=== PATIENT | male | born 1980 | race Two or more races ===

== ENCOUNTER 2024-11-15 08:00 | Day surgery (SDC) | payer MEDICAID, SELFPAY ==
[2024-11-14 15:18] VITALS: BMI 25.8
[2024-11-15] VITALS (11 sets, daily range): BP systolic 106–156; BP diastolic 66–106; PULSE 54–80; RESP 12–20; TEMP 36.2; O2SAT 94–100; BMI 26.1
[2024-11-15] MEDS: RINGERS LACTATED 1000 ML 1,000 ML 20 ML IV (09:43)
[2024-11-15] MEDS: DiphenhydrAMINE INJ 50 MG/ML VIAL 25 MG IV (09:44)
[2024-11-15] MEDS: fentaNYL CIT INJ 50 mCg/ML AMP 2ML (ASD USE ONLY) IV (09:45)
[2024-11-15] MEDS: MEPERIDINE INJ 25 MG/ML VIAL (ASD USE ONLY) IV (09:51)
[2024-11-15] MEDS: MIDAZOLAM INJ 1 MG/ML VIAL 2 ML (ASD USE ONLY) 2 MG IV (09:52)
[2024-11-15] MEDS: ONDANSETRON INJ 2 MG/ML INJ 2 ML 4 MG IV (10:06)
== END 2024-11-15 10:57 | disposition home or self-care (01) ==
PROVIDERS: PCP Family Medicine; Referring Provider Surgery; Visit Provider Surgery
PROC: 0DBE8ZX Excision of Large Intestine, Via Natural or Artificial Opening Endoscopic, Diagnostic (ICD-10-PCS; CPT 45380; principal; 2024-11-15 10:45)
DX: Z12.11 Encounter for screening for malignant neoplasm of colon (principal)
CPT/HCPCS: 45378; J1200; J2175; J2250; J2405; J3010; J7120

== ENCOUNTER 2025-03-16 20:09 | Emergency (ER) | payer MEDICAID, SELFPAY ==
[2025-03-16 20:10] VITALS: BMI 24.6
[2025-03-16 20:31] VITALS: BP 137/78; PULSE 69; RESP 18; TEMP 36.9; O2SAT 96; BMI 26.6
--- NOTE | 2025-03-16 20:50 | XR_ITS ---
Examination: Toes, left foot first digit Technique: Toes AP oblique lateral 3 views Date and time of exam: March 16, 20252051 hours INDICATIONS: Injury to first digit today, pain FINDINGS: Acute fractures mid and distal aspect distal phalanx first digit without significant displacement IMPRESSION: Acute fractures distal phalanx first digit
[2025-03-16] MEDS: ACETAMINOPHEN 500 MG TABLET 1000 MG PO (21:13)
--- NOTE | 2025-03-16 21:56 | EDNOTE_ITS ---
Lower Extremity Injury RME/HPI General Chief Complaint: Ankle/Foot Injury Stated Complaint: L GREAT TOE INJURY Time Seen by Provider: 03/16/25 20:21 Source: patient Arrival date/time: 03/16/25 20:09 RME / HPI RME / HPI Narrative: 44-year-old male presents to the ED with a complaint of left great toe pain secondary to an injury he sustained while purchasing wood at [employer]. He states he was getting a 4 x 8's sheet of plywood off the shelf when it fell, landing on his left great toe. He took an ibuprofen at home prior to his arrival. He has swelling and ecchymosis proximal to the cuticle tenderness Related Data Previous Rx's ?Medication ?Instructions ?Recorded inhalational spacing device #1 ea 04/11/21 (AeroTrach Plus spacer) ibuprofen 600 mg tablet 600 mg PO Q8H PRN pain #30 t abs 03/16/25 Allergies Allergy/AdvReac Type Severity Reaction Status Date / Time No Known Allergies Allergy Verified 03/16/25 20:14 Review of Systems Review of Systems Systems Reviewed: All systems reviewed, normal except as documented Past Medical History Past Medical History NEUROLOGIC: Negative Neurological Disorders or Seizures CARDIAC: Negative Cardiac Disorders or Congestive Heart Failure RESPIRATORY: Positive Asthma (NO INHALER NEEDE FOR 3 YEARS) and Pneumonia (IN 2019 DUE TO COVID); Negative Chronic Obstructive Pulmonary Disease (COPD) GASTROINTESTINAL: Positive Gastrointestinal Disorders (EPISODES OF DIARRHEA AND CONSTIPATION) and Gastroesophageal Reflux Disease GENITOURINARY: Negative Genitourinary Disorders or Renal Disease MUSCULOSKELETAL: Negative Musculoskeletal Disorders ENDOCRINE: Negative Endocrine Disorders, Diabetes Mellitus Type 1 or Diabetes Mellitus Type 2 HEMATOLOGIC: Negative Blood Disorders OTHER HISTORY: Negative Autoimmune Disease, Blood Transfusions, Blood Transfusion Reaction, Anesthesia Reactions or Cancer Family History FAMILY HISTORY: Negative Family Cardiac Disorders Social History SMOKING STATUS: Never smoker SUBSTANCE USE: does not use ED Exam Narrative Physical exam: A&O, afebrile and non-toxic appearing 44-year-old male, no acute distress. Left great toe with swelling and ecchymosis noted proximal to the cuticle. He has painful weightbearing as well as tenderness to the first metatarsal phalangeal joint and distally. No open wound is noted. CMS intact to all 5 toes. No tenderness to palpation of the metatarsals or 2nd, 3rd, 4th or 5th MTP joints. Lungs are clear, RRR, Abdomen is non-distended. Moves all other extremities well. Course Course Course Narrative: Patient was given Tylenol 1 g p.o. X-rays of the left toes reveals Acute fractures distal phalanx first digit, per radiologist reading. Patient was placed in a postop shoe and fitted with a pair of crutches. He will be discharged home with a prescription of ibuprofen 600 mg to be taken 3 times daily as needed. He will be given light duty until he has seen by his primary care physician. Quality Measures none Orders Category Date Time Status XR toe LT min 2V Stat Exams 03/16/25 20:50 Completed Acetaminophen Tab [Tylenol ES Tab] Med 03/16/25 20:50 Discontinued 1,000 mg PO X1 ONE Vital Signs Vital signs: Vital Signs Temperature 98.4 F 03/16/25 20:31 Pulse Rate 69 03/16/25 20:31 Respiratory Rate 18 03/16/25 20:31 Blood Pressure 137/78 H 03/16/25 20:31 Pulse Oximetry (%) 96 03/16/25 20:31 Oxygen Delivery Method Room Air 03/16/25 20:31 Extremity Injury, Lower MDM Narrative MDM Narrative:: Symptoms, exam and diagnostic studies are consistent with: Left great toe distal phalanx fractures with nondisplacement. Patient was discharged home in stable and improved condition, with a postop shoe and crutches. He was prescribed ibuprofen 600 mg p.o. to be taken 3 times daily as needed. Patient/family advised to follow-up with their PCP in 24-48 hours. Encouraged to return to the ED for any new or worsening symptoms. Patient data External records reviewed:: None Clinical information provided by:: patient Social determinants that could affect healthcare access:: none Patient has the following chronic illnesses:: N/A How is presenting disease/condition affected by chronic disease/condition?: no chronic disease Evaluation data The following diagnostics were reviewed and interpreted by me:: radiology exam(s) Lab and/or radiology exams considered but not ordered:: N/A Interpretation Summary: As noted above Medications / Prescriptions Medications or Prescriptions considered but not ordered:: N/A Medication administrations:: Medication Administration History Discontinued Medications Acetaminophen (Acetaminophen 500 Mg Tablet) 1,000 mg PO X1 ONE Stop: 03/16/25 20:51 Last Admin: 03/16/25 21:13 Dose: 1,000 mg Documented By: MF As above Consultations Consultation(s) initiated? (list below): No Diagnosis Extremity Injury, Lower Differential Diagnosis: fracture of toe and other (Contusion of toe, open toe fracture, dislocated toe) Most likely diagnosis given after review of the tests above:: Fracture of left great toe Admission Indicated Admission indicated?: not indicated Explain why admission is indicated or not indicated:: Patient is stable for discharge Admission Request Was there a request for admission?: No Admission Attestation Admission request attestation: N/A Disposition Plan Disposition Plan: Discharge Discharge Attestation Discharge Attestation: The patient and all family members were given an opportunity to ask questions and understood the discharge instructions. Discharge instructions specifically effects, indications for sooner follow up or return to the emergency department, and the expected course of current diagnosis. Patient condition: Stable Discharge Plan Plan Patient Disposition: HOME (Self Care) Discharge Disposition comment: Stable and improved Prescriptions/Referrals Prescriptions/Med Rec: New ibuprofen 600 mg tablet 600 mg PO Q8H PRN (Reason: pain) Qty: 30 0RF No Action (DME) AeroTrach Plus Spacer See Rx Instructions .ROUTE .MEDSUPPLY Qty: 1 0RF Rx Instructions: As directed Problem List Clinical Impression: Fracture of toe Patient/Caregiver Discharge Instructions Education Materials: ED Fracture, Toe, Closed Additional Instructions: Ice and elevate the left great toe. Wear the postop shoe to prevent bending of the toe. Use the crutches to alleviate pain. Follow-up with your primary care physician in 24 to 48 hours. Return to the ED for any new or worsening symptoms. Print Language: Japanese Stand Alone Forms: Deanne Award Info., Work/School Release, Patient Portal Info Letter DONYA/MICHAEL Supervising Physician DONYA/MICHAEL Supervising Physician: Dr. Whelan
== END 2025-03-16 22:26 | disposition home or self-care (01) ==
LOC: SERX 22:32
PROVIDERS: Emergency Provider Emergency Medicine
DX: S92.425A Nondisplaced fracture of distal phalanx of left great toe, initial encounter for closed fracture (principal); W20.8XXA Other cause of strike by thrown, projected or falling object, initial encounter
CPT/HCPCS: 73660; 99284; A9270

== ENCOUNTER 2025-07-01 02:55 | Emergency (ER) | payer MEDICAID, SELFPAY ==
[2025-07-01 02:56] VITALS: BMI 26.1
--- NOTE | 2025-07-01 02:57 | EKG_ITS ---
[facility] Test Date: 2025-07-01 Pat Name: ANNY TINOCO Department: Room: - Gender: Male Shrimp [employer]er: : 1980 Requested By: ED Temporary Provider Order Number: [id number] Reading MD: ED Temporary Provider Measurements Intervals [place] Rate: 63 P: 70 AR: 166 QRS: 13 QRSD: 84 T: 46 QT: 369 QTc: 380 Interpretive Statements SINUS RHYTHM Compared to ECG 04/13/2021 11:39:41 No significant changes /store/S0/[id number]/ecg/[id number].pdf
[2025-07-01 03:04] VITALS: BP 173/91; PULSE 63; RESP 16; TEMP 36.4; O2SAT 98
--- NOTE | 2025-07-01 03:08 | XR_ITS ---
EXAMINATION: PA chest single view TECHNIQUE: Upright PA chest single view Date and time: July 01, 2025, 0307 hours, comparison April 13, 2021 : INDICATIONS: Chest pain today. FINDINGS: Parenchymal disease left upper lobe Normal heart size Right lung clear Osseous structures are intact IMPRESSION: Opacity left upper lobe most consistent with early pneumonia, follow-up is needed to document clearing
[2025-07-01] MEDS: HYDROcodone/APAP 5/325 TABLET 1 TAB PO (03:24)
[2025-07-01 03:35] LABS: Basophils # (Auto) 0.1 Thou/mm3 (0.0-0.2); Basophils % (Auto) 1 % (0-2.5); Eosinophils # (Auto) 0.2 Thou/mm3 (0.0-0.5); Eosinophils % (Auto) 2 % (0-10); Hematocrit 44.9 % (41.0-53.0); Hemoglobin 16.1 g/dL (13.5-16.0); Immature Granulocytes Auto 0.04 Thou/mm3 (0.00-0.00); Lymphocytes # (Auto) 2.7 Thou/mm3 (1.0-4.8); Lymphocytes % (Auto) 34 % (10-50); Mean Corpuscular HGB Conc 35.9 g/dl (31.0-37.0); Mean Corpuscular Hemoglobin 33.0 pg (25.0-35.0); Mean Corpuscular Volume 92 fL (80-100); Monocytes # (Auto) 0.8 Thou/mm3 (0.0-0.8); Monocytes % (Auto) 10 % (0-12); Neutrophils # (Auto) 4.3 Thou/mm3 (1.8-7.7); Neutrophils % (Auto) 53 % (37-80); Nucleated Red Blood Cell # 0.00 Thou/mm3 (0.00-0.00); Nucleated Red Blood Cell % 0 /100 WBC (0); Platelet Count 307 Thou/mm3 (140-440); RDW Standard Deviation 41.2 fL (35.1-43.9); Red Blood Count 4.88 Miln/mm3 (4.50-5.90); White Blood Count 8.1 Thou/mm3 (3.8-10.6)
[2025-07-01 03:48] LABS: B-Type Natriuretic Peptide < 20 pg/mL (0-100)
[2025-07-01 03:49] LABS: Alanine Aminotransferase 22 U/L (10-49); Albumin, Serum 4.6 gm/dL (3.5-5.0); Albumin/Globulin Ratio 1.9 (1.2-2.2); Alkaline Phosphatase 86 U/L (46-116); Anion Gap 8 (7-16); Aspartate Amino Transferase 26 U/L (0-34); BUN/Creatinine Ratio 11 Ratio (12-20); Bilirubin,Total 0.6 mg/dL (0.3-1.2); Blood Urea Nitrogen 12 mg/dL (9-23); Calcium 9.9 mg/dL (8.3-10.6); Calcium (Corrected) 9.9 mg/dL (8.5-10.1); Carbon Dioxide 27.3 mMol/L (20.0-31.0); Chloride 108 mMol/L (98-107); Creatinine (Component) 1.1 mg/dL (0.6-1.3); Estimated Creatinine Clearance 81.2 mL/min (>60); Globulin 2.4 gm/dL (2.3-3.5); Glucose 99 mg/dL (74-106); Lipase 51 U/L (12-53); Osmolality,Calculated 284 (275-295); Potassium 3.8 mMol/L (3.4-5.1); Sodium 143 mMol/L (136-145); Total Protein 7.0 gm/dL (5.7-8.2); Troponin I < 0.002 ng/mL (0.0-0.045); eGFR > 60 See Note
[2025-07-01 03:54] LABS: Collection Type, Urine Clean Catch; Squamous Epithelial Cell,Urine 0 /hpf (0-5)
[2025-07-01 03:59] LABS: D-Dimer < 250 ng/mL (<600)
[2025-07-01 04:07] VITALS: BP 164/87
[2025-07-01 04:13] LABS: Bilirubin,Urine Negative (Negative); Blood,Urine Negative (Negative); Clarity,Urine Clear (Clear/Hazy); Color,Urine Lt-Yellow (Lt Yel-Yel); Glucose, Urine Negative (Negative); Ketones,Urine Negative (Negative); Leukocyte Esterase,Urine Negative (Negative); Nitrite,Urine Negative (Negative); PH,Urine 6.5 (5.0-7.0); Protein,Urine Negative (Neg - Trace); RBC,Urine 1 /hpf (0-3); Specific Gravity,Urine 1.017 (1.001-1.035); Urobilinogen,Urine Negative mg/dL (0.0-1.0); WBC,Urine < 1 /hpf (0-5)
[2025-07-01 04:19] LABS: Amphetamine/Methamp Scrn,U Negative (Negative); Barbiturate Screen,Urine Negative (Negative); Benzodiazepines Screen,Urine Negative (Negative); Benzoylecgonine Screen, Ur Negative (Negative); Fentanyl Screen,Urine Negative (Negative); Opiate Screen,Urine Negative (Negative); THC Screen,Urine Negative (Negative)
[2025-07-01 05:26] LABS: Troponin I < 0.002 ng/mL (0.0-0.045)
--- NOTE | 2025-07-01 05:53 | PD.EDCHEST ---
ED Chest Pain RME/HPI General Chief Complaint: Chest Pain Stated Complaint: CHEST PAIN Time Seen by Provider: 07/01/25 03:07 Arrival date/time: 07/01/25 02:55 This is a case of 44-year-old male who came in in the emergency room due to on and off chest pain since last night burning in character mostly on the midsternal area patient has no medical history patient denies any headache dizziness nausea vomiting palpitation or shortness of breath persistence of the symptoms this patient decided to sought consult here in the emergency room Limitations: no limitations Related Data Previous Rx's ?Medication ?Instructions ?Recorded inhalational spacing device #1 ea 04/11/21 (AeroTrach Plus spacer) ibuprofen 600 mg tablet 600 mg PO Q8H PRN pain #30 tabs 03/16/25 famotidine 20 mg tablet (Pepcid) 20 mg PO BID #60 tabs 07/01/25 omeprazole 20 mg capsule,delayed 20 mg PO QDAY #30 caps 07/01/25 release Allergies Allergy/AdvReac Type Severity Reaction Status Date / Time No Known Allergies Allergy Verified 07/01/25 02:55 Review of Systems Review of Systems Systems Reviewed: All systems reviewed, normal except as documented Constitutional Constitutional: Reports system reviewed and no additional complaints, except as documented and Reports as per HPI Cardiovascular Cardiovascular: Reports system reviewed and no additional complaints, except as documented, Reports as per HPI, Denies acrocyanosis, Reports chest pain, Denies chest pain at rest, Denies chest pain with activity, Denies claudication, Denies diaphoresis, Denies dyspnea, Denies dyspnea on exertion, Denies edema, Denies irregular heart rhythm, Denies leg edema, Denies leg ulcers, Denies lightheadedness, Denies orthopnea, Denies palpitations, Denies paroxysmal nocturnal dyspnea, Denies pedal edema, Denies radiating jaw, neck or arm pain, Denies rapid heart rate and Denies slow heart rate Respiratory Respiratory: Reports system reviewed and no additional complaints, except as documented, Reports as per HPI, Denies dyspnea and Denies dyspnea on exertion Gastrointestinal Gastrointestinal: Reports system reviewed and no additional complaints, except as documented and Reports as per HPI Musculoskeletal Musculoskeletal: Reports system reviewed and no additional complaints, except as documented and Reports as per HPI Neurologic Neurologic: Reports system reviewed and no additional complaints, except as documented and Reports as per HPI Endocrine Endocrine: Denies palpitations Past Medical History Past Medical History NEUROLOGIC: Negative Neurological Disorders or Seizures CARDIAC: Negative Cardiac Disorders or Congestive Heart Failure RESPIRATORY: Positive Asthma (NO INHALER NEEDE FOR 3 YEARS) and Pneumonia (IN 2020 DUE TO COVID); Negative Chronic Obstructive Pulmonary Disease (COPD) GASTROINTESTINAL: Positive Gastrointestinal Disorders (EPISODES OF DIARRHEA AND CONSTIPATION) and Gastroesophageal Reflux Disease GENITOURINARY: Negative Genitourinary Disorders or Renal Disease MUSCULOSKELETAL: Negative Musculoskeletal Disorders ENDOCRINE: Negative Endocrine Disorders, Diabetes Mellitus Type 1 or Diabetes Mellitus Type 2 HEMATOLOGIC: Negative Blood Disorders OTHER HISTORY: Negative Autoimmune Disease, Blood Transfusions, Blood Transfusion Reaction, Anesthesia Reactions or Cancer Family History FAMILY HISTORY: Negative Family Cardiac Disorders Social History SMOKING STATUS: Never smoker SUBSTANCE USE: does not use ED Exam General Limitations: Present no limitations General appearance: Present alert, in no apparent distress and other Head Head exam: Present atraumatic, normocephalic and normal inspection Eye Eye exam: Present normal appearance, PERRL and EOMI ENT ENT exam: Present normal exam, normal oropharynx and mucous membranes moist Neck Neck exam: Present normal inspection, full ROM and trachea midline; Absent tenderness, meningismus, lymphadenopathy or thyromegaly Chest Chest inspection: Present normal inspection and symmetric chest wall rise; Absent tenderness Respiratory Respiratory exam: Present normal lung sounds bilaterally; Absent respiratory distress, wheezes, stridor, accessory muscle use or prolonged expiratory phase Cardiovascular Cardiovascular exam: Present regular rate, normal rhythm and normal heart sounds; Absent bradycardia, tachycardia, irregular rhythm or diastolic murmur Abdominal Exam Abdominal exam: Present soft and normal bowel sounds; Absent distention, tenderness, guarding, rebound, rigidity, diminished bowel sounds, hyperactive bowel sounds, hypoactive bowel sounds or organomegaly Extremities Exam Extremities exam: Present normal inspection and full ROM Back Exam Back exam: Present normal inspection and full ROM Neurological Exam Neurological exam: Present alert, oriented X3, CN II-XII intact, normal gait and reflexes normal; Absent motor sensory deficit Psychiatric Psychiatric exam: Present normal affect and normal mood Skin Skin exam: Present warm, dry, intact, normal color and other (Excellent skin turgor) Course Quality Measures none Orders Category Date Time Status EKG (ED ONLY) *Do not use* NOW Care 07/01/25 02:57 Completed EKG (ED Only) Stat Exams 07/01/25 02:57 Draft XR chest 1V Stat Exams 07/01/25 03:08 Taken BNP [B-Type Natriuretic Peptide] Stat Lab 07/01/25 03:17 Completed CBC Stat Lab 07/01/25 03:17 Completed Comprehensive Metabolic Panel Stat Lab 07/01/25 03:17 Completed D-Dimer Stat Lab 07/01/25 03:17 Completed Drug Screen,Urine Stat Lab 07/01/25 03:48 Completed Lipase Stat Lab 07/01/25 03:17 Completed Troponin I Stat Lab 07/01/25 03:17 Completed Troponin I Stat Lab 07/01/25 04:45 Completed Urinalysis Stat Lab 07/01/25 03:48 Completed Aspirin Med 07/01/25 03:08 Discontinued 325 mg PO X1 ONE HYDROcodone*/APAP 5/325 [Otwell 5/325] Med 07/01/25 03:08 Discontinued 1 tab PO X1 ONE Vital Signs Vital signs: Vital Signs Temperature 97.5 F 07/01/25 03:04 Pulse Rate 63 07/01/25 03:04 Respiratory Rate 16 07/01/25 03:04 Blood Pressure 173/91 H 07/01/25 03:04 Pulse Oximetry (%) 98 07/01/25 03:04 Oxygen Delivery Method Room Air 07/01/25 03:04 Oxygen saturation is 98% in room air BP was checked noted to be normal 135/65 after giving Otwell and aspirin Chest Pain MDM Narrative MDM Narrative:: This is a case of 44-year-old male who came in in the emergency room due to on and off chest pain since last night burning in character mostly on the midsternal area patient has no medical history patient denies any headache dizziness nausea vomiting palpitation or shortness of breath persistence of the symptoms this patient decided to sought consult here in the emergency room physical examination patient is awake alert oriented not in distress nontoxic looking well-hydrated well-nourished patient vital signs noted elevated BP 161/78 after given Otwell and aspirin BP went down to 135/85 not tachycardic not tachypneic not hypoxic and afebrile lungs sound is clear breath sound no crackles no rales no rhonchi no retraction no stridor no heart normal rate regular rhythm no murmur abdominal exam is benign nonsurgical no guarding no rebound no rigidity tenderness the rest of the physical examination and neurological exam is normal and unremarkable blood test showed no leukocytosis no anemia kidney and liver function is normal no electrolyte imbalance EKG is sinus rhythm negative troponin 2 troponin is negative BNP is normal D-dimer is negative drug screen is negative urinalysis is normal chest x-ray is also normal I discussed with Dr. Garcia patient condition discussed the result of the blood test EKG and chest x-ray at this point Dr. Garcia agreed that there is no signs and symptoms of cardiopulmonary pathology patient is not having [place] or pulmonary embolism nor aortic dissection patient have negative D-dimer vital signs stable the x-ray showed very narrow mediastinum no unlikely for aortic dissection patient will be discharged home in stable condition patient will follow-up with PCP in 2 days for reevaluation and to be referred to nursing assoc he was also advised for any worsening symptoms or any emergent concern return precaution in the emergency room was advised patient was prescribed with Pepcid and omeprazole for possible gastritis Patient was discharged with comfortable condition walking with stable gait. Patient verbalized no further complains explained diagnosis and answered patient question. Patient is comfortable with the proposed management plan including the need to follow up with his/her primary care physician and any specialist if applicable Discussed patient for any urgent condition or worsening sx, He/She needed to go to emergency room immediately or call 911. Patient acknowledge the responsibility to follow up as instructed and to monitor her/his symptoms. For any persistence of the symptoms for more than 3-5 days return precaution advised. Discussed the result of the test and was given printed discharge instruction Patient data External records reviewed:: [facility] previous records Clinical information provided by:: patient Social determinants that could affect healthcare access:: none Patient has the following chronic illnesses:: None How is presenting disease/condition affected by chronic disease/condition?: no chronic disease Evaluation data The following diagnostics were reviewed and interpreted by me:: lab results, radiology exam(s) and EKG tracing(s) Lab and/or radiology exams considered but not ordered:: Reviewed Interpretation Summary: Reviewed Medications / Prescriptions Medications or Prescriptions considered but not ordered:: Given Medication administrations:: Medication Administration History Discontinued Medications Hydrocodone Bitart/Acetaminophen (Hydrocodone/Apap 5/325 Tablet) 1 tab PO X1 ONE Stop: 07/01/25 03:09 Last Admin: 07/01/25 03:24 Dose: 1 tab Documented By: CVL Aspirin (Aspirin 325 Mg Tablet) 325 mg PO X1 ONE Stop: 07/01/25 03:09 Last Admin: 07/01/25 03:23 Dose: 325 mg Documented By: CVL Given Consultations Consultation(s) initiated? (list below): Yes Consultation #1 (Physician, Specialty, Details): Dr. Garcia discussed patient condition history and physical examination result of the blood test imaging and EKG at this point he agreed that the patient is not having cardiopulmonary pathology not IN not aortic dissection not pulmonary embolism Diagnosis Chest Pain Differential Diagnosis: costochondritis, chest pain and other (Pulmonary embolism IN gastritis) Most likely diagnosis given after review of the tests above:: Chest pain of unknown etiology Admission Indicated Admission indicated?: not indicated Explain why admission is indicated or not indicated:: Not indicated Admission Request Was there a request for admission?: No Admission Attestation Admission request attestation: Not indicated Disposition Plan Disposition Plan: Discharge Discharge Attestation Discharge Attestation: The patient and all family members were given an opportunity to ask questions and understood the discharge instructions. Discharge instructions specifically effects, indications for sooner follow up or return to the emergency department, and the expected course of current diagnosis. Patient condition: Stable Discharge Plan Plan Patient Disposition: HOME (Self Care) Patient condition on transfer: Stable Prescriptions/Referrals Prescriptions/Med Rec: New famotidine [Pepcid] 20 mg tablet 20 mg PO BID Qty: 60 0RF omeprazole 20 mg capsule,delayed release(DR/EC) 20 mg PO QDAY Qty: 30 0RF No Action (DME) AeroTrach Plus Spacer See Rx Instructions .ROUTE .MEDSUPPLY Qty: 1 0RF Rx Instructions: As directed ibuprofen 600 mg tablet 600 mg PO Q8H PRN (Reason: pain) Qty: 30 0RF Referrals: Leandro Muhammad MD [Primary Care Provider, Family Practice] - In 1 week Problem List Clinical Impression: Chest pain of unknown etiology, Elevated blood pressure reading without diagnosis of hypertension Patient/Caregiver Discharge Instructions Education Materials: ED Chest Pain, Uncertain Cause, ED High Blood Pressure ... Additional Instructions: Follow-up with your primary care physician in 2 days for reevaluation and to be referred to nursing assoc for further evaluation and treatment of chest pain for possible echocardiogram stress test and Holter monitor recurrence persistent worsening symptoms or any emergent concern return immediately in the emergency room or call 911 take your medication as directed avoid spicy food avoid fatty fried high cholesterol food avoid skipping of meals avoid alcohol soda coffee keep hydrated it is very important to monitor your blood pressure twice a day and return to the emergency room if your blood pressure greater than 160/100 or become symptomatic follow-up with your primary care physician for possible treatment of hypertension Print Language: Beninese Stand Alone Forms: Deanne Award Info., Patient Portal Info Letter PA/HOURLY SIGN LANGUAGE INTERPRETER Supervising Physician PA/HOURLY SIGN LANGUAGE INTERPRETER Supervising Physician: Dr. Garcia
[2025-07-01 05:56] VITALS: RESP 18
== END 2025-07-01 05:56 | disposition home or self-care (01) ==
PROVIDERS: Nurse Practitioner Family; Emergency Provider Emergency Medicine; PCP Family Medicine
DX: R07.9 Chest pain, unspecified (principal); R03.0 Elevated blood-pressure reading, without diagnosis of hypertension
CPT/HCPCS: 36415; 71045; 80053; 80307; 81001; 83690; 83880; 84484; 85025; 85379; 93005; 99283; A9270